=== PATIENT | male | born 1965 | race Caucasian/White ===

== ENCOUNTER 2018-09-01 13:13 | Emergency (ER) | payer OTHER ==
[~2018-09-01] VITALS: Ht 195.6 cm; Wt 163.6 kg
[2018-09-01 13:33] VITALS: Ht 195.6 cm; Wt 163.6 kg
[2018-09-01] MEDS ORDERED: NAPROSYN500 MG PO (16:01)
[2018-09-01] MEDS ORDERED: STERAPRED DS 1010 MG PO (16:01)
[2018-09-01] MEDS ORDERED: ULTRAM50 MG PO (16:01)
[2018-09-01 16:41] VITALS: BP 130/85
== END 2018-09-01 16:14 | disposition home or self-care (01) ==
LOC: D.ER 13:13
DX: M54.2 Cervicalgia (principal)

== ENCOUNTER → 2019-01-26 14:09 | Outpatient (CLI) | payer OTHER ==
[2018-09-01 13:33] VITALS: BMI 42.8
[~2019-01-26 14:09] MED LIST: NAPROSYN500 MG PO; STERAPRED DS 1010 MG PO; ULTRAM50 MG PO
== END | disposition home or self-care (01) ==
LOC: D.US 14:09
PROVIDERS: ATTEND Legal Medicine
DX: M79.605 Pain in left leg (principal); M79.89 Other specified soft tissue disorders

== ENCOUNTER → 2019-02-15 13:13 | Outpatient (CLI) | payer OTHER ==
[2018-09-01 13:33] VITALS: BMI 42.8
== END | disposition home or self-care (01) ==
LOC: D.MRI 13:13
PROVIDERS: ATTEND Orthopaedic Surgery
DX: S83.232A Complex tear of medial meniscus, current injury, left knee, initial encounter (principal)